=== PATIENT | female | born 1985 | race Caucasian/White ===

== ENCOUNTER → 2016-06-24 | Outpatient (CLI) | payer OTHER ==
--- NOTE | 2016-06-25 05:20 | REP ---
Clinical: Anatomical evaluation. Comparison: 05/27/2016 . Findings: Examination demonstrates a single live intrauterine in breech presentation. motion is identified by technologist. Placenta is noted anteriorly and grade zero without evidence for placenta previa or abruption. Amniotic fluid volume is normal. Cervix measures 5.4 cm in length and appears closed. No evidence for nuchal cord. Gestational age by LMP 24 weeks 4 days with HIPOLITO 10/10/2016 . Gestational age by current measurements 24 weeks 2 days with HIPOLITO 10/12/2016 . FHR equals 133 beats per minute. Estimated weight 718 grams ( 46th percentile). Anatomical assessment demonstrates normal structures including cranium, choroid plexus, cavum, cerebellum/posterior fossa, facial features, lungs, four-chamber heart/ventricular outflow tracts, diaphragm, stomach, cord insertion, bladder, spine, and extremities. Impression: Single live intrauterine in breech presentation demonstrating appropriate interval growth. In conjunction with prior examination anatomical assessment is complete and normal. Signed by Alvin Calderón MD 06/25/2016 05:11 A
== END ==
LOC: M SMT 13:44
PROVIDERS: ATTEND Advanced Practice Midwife
DX: Z36 Encounter for antenatal screening of mother (principal); Z3A.24 24 weeks gestation of pregnancy

== ENCOUNTER → 2016-07-17 | Outpatient (CLI) | payer OTHER ==
[2016-07-17 17:58] LABS: MEAN CORPUSCULAR HGB CONC 32.7 g/dl (32.0-36.5); MEAN CORPUSCULAR VOLUME 94.8 fl (80.0-96.0); WHITE BLOOD COUNT 7.4 K/mm3 (4.0-10.0)
== END ==
LOC: M SMT 13:56
PROVIDERS: ATTEND Specialist
DX: Z34.82 Encounter for supervision of other normal pregnancy, second trimester (principal)

== ENCOUNTER → 2016-07-22 | Outpatient (CLI) | payer OTHER | LOC: M LAB 06:48 | PROVIDERS: ATTEND Specialist | DX: Z36 Encounter for antenatal screening of mother (principal); Z3A.00 Weeks of gestation of pregnancy not specified ==

== ENCOUNTER → 2016-09-15 | Outpatient (REF) | payer OTHER | LOC: M LAB REF 11:31 | PROVIDERS: ATTEND Obstetrics & Gynecology | DX: Z34.83 Encounter for supervision of other normal pregnancy, third trimester (principal) ==

== ENCOUNTER → 2016-09-29 | Outpatient (CLI) | payer OTHER ==
[2016-09-29 11:11] LABS: MEAN CORPUSCULAR HEMOGLOBIN 31.6 pg (27.0-33.0); MEAN CORPUSCULAR HGB CONC 33.4 g/dl (32.0-36.5); MEAN CORPUSCULAR VOLUME 94.5 fl (80.0-96.0); RED CELL DISTRIBUTION WIDTH 12.9 % (11.5-14.5); WHITE BLOOD COUNT 8.7 K/mm3 (4.0-10.0)
[2016-09-29 11:46] LABS: INR 0.93
== END ==
LOC: M LAB 10:36
PROVIDERS: ATTEND Advanced Practice Midwife
DX: Z36 Encounter for antenatal screening of mother (principal)

== ENCOUNTER 2016-10-18 08:55 | Inpatient (IN) | payer OTHER ==
[~2016-10-18] VITALS: Ht 165.1 cm; Wt 80.0 kg
[2016-10-18] VITALS (7 sets, daily range): BP systolic 107–127; BP diastolic 65–75
[2016-10-18] MEDS ORDERED: PRENTAB9 PO (09:02)
[2016-10-18 09:51] LABS: MEAN CORPUSCULAR HEMOGLOBIN 32.5 pg (27.0-33.0); MEAN CORPUSCULAR HGB CONC 33.6 g/dl (32.0-36.5); MEAN CORPUSCULAR VOLUME 96.6 fl (80.0-96.0); RED CELL DISTRIBUTION WIDTH 12.8 % (11.5-14.5); WHITE BLOOD COUNT 7.3 K/mm3 (4.0-10.0)
[2016-10-18] MEDS: miSOPROStol 50 MCG 1/2 TAB (S0191) PO SCH ×2 (11:20→15:35)
[2016-10-18] MEDS ORDERED: CALCIUM CARBONATE 500 MG CHEW U/D PO PRN (11:45)
[2016-10-18] MEDS ORDERED: LACTATED RINGER'S 1000 ML IV ONE (11:54)
--- NOTE | 2016-10-18 21:21 | HPE ---
DATE OF ADMISSION: 10/18/2016 REASON FOR ADMISSION: Induction of labor. HISTORY OF PRESENT ILLNESS: Ms. Paz is a 31-year-old, 2, para 0, who presents at 40 weeks 6 days estimated gestational age by a 9 week ultrasound for induction of labor. Her course has been unremarkable. She initiated care in her first trimester, it has been appropriate throughout. PAST MEDICAL HISTORY: None. PAST SURGICAL HISTORY: She has had a dilatation and curettage for a miscarriage. PAST OBSTETRICAL HISTORY: She is a 2, para 0, had one miscarriage. MEDICATIONS: Includes: - vitamins ALLERGIES: She has no known drug allergies. SOCIAL HISTORY: Denied any alcohol, tobacco, or drug use during her . PHYSICAL EXAMINATION: Her vital signs are stable, she is afebrile. She has a category 1 heart rate tracing and no contractions on tocometer. GENERAL APPEARANCE: She is well-appearing, in no acute distress. LUNGS: Clear to auscultation bilaterally. CARDIOVASCULAR: Heart regular rate and rhythm. ABDOMEN: Gravid, nontender, estimated weight (EFW) 3400 grams. CERVIX: She is 1 cm dilated, 50% effaced, -3 station. LABORATORY DATA: Her blood type is A positive, antibody screen is negative, Rubella is immune, RPR is nonreactive, hepatitis surface antigen was negative, HIV was negative, hepatitis C was nonreactive, chlamydia/gonorrhea screen is negative. She had an elevated 1-hour Glucola with a negative 3-hour glucose tolerance test. She is group B Streptococcus (GBS) negative. ASSESSMENT: 1. Ms. Paz is a 31-year-old, 2, para 0, at 40 weeks 6 days estimated gestational age by her last menstrual period and confirmed by mid-trimester ultrasound here for induction of labor. 2. Reassuring status. PLAN: 1. Admit to labor and delivery. 2. Complete blood count (CBC), rapid plasma reagin (RPR), type and screen. 3. Patient has been thoroughly counseled in regards to her induction of labor. Discussed medication as well as procedures performed during labor and delivery. I have also verbally consented her for emergency surgery, blood products, and anesthesia if she desires to proceed with admission. Will initiate her induction of labor with 50 mcg of misoprostol.
[2016-10-18] MEDS ORDERED: miSOPROStol 50 MCG 1/2 TAB (S0191) PO SCH (22:00)
[2016-10-19] VITALS (42 sets, daily range): BP systolic 98–139; BP diastolic 53–81
[2016-10-19] MEDS: miSOPROStol 100 MCG TAB (S0191) PO SCH ×3 (01:09→09:24)
[2016-10-19] MEDS ORDERED: BUTORPHANOL 2 MG/ML INJ (J0595) IV ONE ×2 (02:30→10:15)
[2016-10-19] MEDS ORDERED: PROMETHAZINE INJ 25 MG/ML VIAL (J2550) IM PRN (02:30)
[2016-10-19] MEDS ORDERED: PROMETHAZINE INJ 25 MG/ML VIAL (J2550) IV PRN (02:45)
[2016-10-19] MEDS ORDERED: PROMETHAZINE INJ 25 MG/ML VIAL (J2550) IV ONE (10:15)
[2016-10-19] MEDS ORDERED: MOM 30ML SUSPENSION UDC PO ONE (10:15)
[2016-10-19] MEDS ORDERED: LR 1,000 ML IV SCH ×2 (14:35→22:15)
[2016-10-19] MEDS ORDERED: OXYTOCIN DRIP 30 UNITS in APPROPRIATE DILUENT 1 EA IV SCH (14:45)
[2016-10-19] MEDS ORDERED: FENTANYL 2MCG/ML ROPIVACAINE 0.2% IN 0.9% NACL 200ML IVBAG As Ordered ONE (19:33)
[2016-10-19] MEDS ORDERED: ceFAZolin 2 GM/D5W 50 ML IV BAG (J0690) As Ordered ONE (22:13)
[2016-10-19] MEDS ORDERED: BICITRA 30ML SOLN UDC As Ordered ONE (22:13)
[2016-10-19] MEDS ORDERED: LACTATED RINGER'S 1000 ML IV STA (22:15)
[2016-10-19] MEDS ORDERED: BICITRA 30ML SOLN UDC PO ONE (22:15)
[2016-10-19] MEDS ORDERED: OXYTOCIN INJ 10 UNITS/ML VIAL (J2590) As Ordered ONE (22:24)
[2016-10-19] MEDS ORDERED: LIDOCAINE 2% W/EPIN INJ 20ML **PRES FREE As Ordered ONE (22:28)
[2016-10-19] MEDS ORDERED: METOCLOPRAMIDE INJ 10MG/2ML VIAL (J2765) IV PRN (23:00)
[2016-10-19] MEDS ORDERED: NALOXONE INJ 0.4 MG/1 ML VIAL (J2310) IV PRN ×2 (23:00)
[2016-10-19] MEDS ORDERED: NALBUPHINE HCL 10 MG/ML AMP (J2300) IV PRN (23:00)
[2016-10-19] MEDS ORDERED: ONDANSETRON 4MG/2ML VIAL (J2405) IV PRN ×2 (23:00→23:30)
[2016-10-19] MEDS ORDERED: MORPHINE PRES-FREE INJ 10 MG/10 ML VIAL (J2274) As Ordered ONE (23:04)
[2016-10-19] MEDS: LR 1,000 ML IV SCH (23:28)
[2016-10-19] MEDS ORDERED: PERCOCET 5MG/325MG TAB PO PRN ×2 (23:30)
[2016-10-19] MEDS ORDERED: OXYTOCIN DRIP 30 UNITS in APPROPRIATE DILUENT 1 EA IV ONE (23:30)
[2016-10-19] MEDS ORDERED: RHOGAM 300 MCG (1500 IU) INJ (J2790) IM SCH (23:30)
[2016-10-19] MEDS ORDERED: DOCUSATE SODIUM 100 MG CAP PO PRN (23:30)
[2016-10-19] MEDS ORDERED: MEASLES,MUMPS,RUBELLA VACCINE INJ (MMR-II) (90707) SC SCH (23:30)
[2016-10-20] VITALS (9 sets, daily range): BP systolic 102–117; BP diastolic 52–67
[2016-10-20] MEDS: KETOROLAC 30 MG/ML VIAL (J1885) IV SCH ×4 (02:00→14:37)
--- NOTE | 2016-10-20 05:33 | RO ---
DATE OF PROCEDURE: 10/19/2016 PREOPERATIVE DIAGNOSES: 1. A 41-plus weeks. 2. Arrest of dilation. 3. intolerance of labor. POSTOPERATIVE DIAGNOSES: 1. A 41-plus weeks. 2. Arrest of dilation. 3. intolerance of labor. OPERATION: Primary low transverse section. SURGEON: Dr. Reymundo Prado [employer] PROGRAM COORDINATOR: Yancy Restrepo ANESTHESIA: Epidural. ESTIMATED BLOOD LOSS: 500 mL. FINDINGS: 7-pound 6-ounce, or 3346 gram female . scores 9 and 10. Left occiput posterior position. Arcuate uterus with normal fallopian tubes and ovaries. OPERATIVE SUMMARY: The patient was taken to the operating room where epidural anesthesia was found to be adequate. She was prepped and draped in sterile fashion in the supine position. A Mckeon catheter was already in place. A Pfannenstiel skin incision was made with a scalpel and carried through to the fascia. The fascia was then extended bilaterally. Rectus muscles were divided. The peritoneal cavity was entered. A bladder flap was created. A curvilinear incision was made in the lower uterine segment until clear fluid was noted. This was extended manually. The was delivered in the vertex position without difficulty. Shoulders delivered with ease. cried spontaneously. The cord was doubly clamped and cut. The infant was handed off to the awaiting nurses. The placenta was expressed. The uterus was exteriorized and cleared of clots and debris. The uterine incision was closed with #0 Vicryl in a running- locked fashion. A second imbricating layer of #0 Vicryl was placed. The uterus was placed back in the abdominal cavity. The peritoneum was closed with #2-0 Vicryl in a running fashion. The fascia was closed with #0 Vicryl in a running fashion. The deep layer was irrigated and closed with #3-0 chromic. Skin was closed with #4-0 Monocryl. Sponge, instrument, and needle counts were correct. The patient went to the recovery room in stable condition. [facility]
[2016-10-20 06:53] LABS: MEAN CORPUSCULAR HEMOGLOBIN 32.2 pg (27.0-33.0); MEAN CORPUSCULAR HGB CONC 34.1 g/dl (32.0-36.5); MEAN CORPUSCULAR VOLUME 94.5 fl (80.0-96.0); WHITE BLOOD COUNT 12.2 K/mm3 (4.0-10.0)
[2016-10-20] MEDS: LR 1,000 ML IV SCH ×3 (07:28→22:15)
[2016-10-20] MEDS: PRENATAL VITAMIN TAB PO SCH (10:02)
[2016-10-20] MEDS ORDERED: KETOROLAC 30 MG/ML VIAL (J1885) IV SCH (21:00)
[2016-10-21] MEDS ORDERED: IBUPROFEN 800 MG TAB PO SCH (05:00)
[2016-10-21 06:06] VITALS: BP 98/63
[2016-10-21] MEDS: LR 1,000 ML IV SCH (06:37)
[2016-10-21] MEDS ORDERED: PERC5TAB6 PO (07:31)
[2016-10-21] MEDS: PRENATAL VITAMIN TAB PO SCH (07:56)
[2016-10-21] MEDS ORDERED: IBUP600T26 PO (07:59)
[2016-10-21] MEDS ORDERED: COLA100C3 PO (07:59)
== END 2016-10-21 12:54 | disposition home or self-care (01) | DRG 540 ==
LOC: M LDI 08:55 → M OBS 10-19 23:36
PROVIDERS: ADMIT Obstetrics & Gynecology; ATTEND Obstetrics & Gynecology
PROC: 3E0DXGC Introduction of Other Therapeutic Substance into Mouth and Pharynx, External Approach (ICD-10-PCS; 2016-10-18)
PROC: 10D00Z1 Extraction of Products of Conception, Low, Open Approach (ICD-10-PCS; principal; 2016-10-19 08:27)
DX: O48.0 Post-term pregnancy (principal); O76 Abnormality in fetal heart rate and rhythm complicating labor and delivery; Z37.0 Single live birth; Z3A.40 40 weeks gestation of pregnancy; Z79.899 Other long term (current) drug therapy; O62.0 Primary inadequate contractions; Q51.810 Arcuate uterus

== ENCOUNTER 2016-12-09 10:55 | Emergency (ER) | payer OTHER ==
[~2016-12-09] VITALS: Ht 165.1 cm; Wt 155.6 kg
[~2016-12-09 10:55] MED LIST: COLA100C5 PO; IBUP-1022 PO; PERC5TAB12 PO; PRENTAB9 PO
[2016-12-09 10:57] VITALS: BP 92/57
[2016-12-09 13:38] LABS: BASO % 0.7 % (0.0-1.0); EOS # 0.2 K/mm3 (0.0-0.50); EOS % 3.8 % (0.0-3.0); LARGE UNSTAINED CELL # 0.2 K/mm3 (0.0-0.4); LARGE UNSTAINED CELL % 2.9 % (0.0-4.0); LYMPH # 1.4 K/mm3 (1.5-4.5); LYMPH % 27.6 % (24.0-44.0); MEAN CORPUSCULAR HEMOGLOBIN 31.3 pg (27.0-33.0); MEAN CORPUSCULAR HGB CONC 32.8 g/dl (32.0-36.5); MEAN CORPUSCULAR VOLUME 95.5 fl (80.0-96.0); MONO # 0.3 K/mm3 (0.0-0.8); PLATELET COUNT, AUTOMATED 317 k/mm3 (150-450); RED CELL DISTRIBUTION WIDTH 12.1 % (11.5-14.5)
[2016-12-09 14:06] LABS: ALBUMIN 3.7 GM/DL (3.2-5.2); ALBUMIN/GLOBULIN RATIO 0.93 (1.00-1.93); ALKALINE PHOSPHATASE 93 U/L (45-117); ALT/SGPT 71 U/L (12-78); AMYLASE 53 U/L (25-115); ANION GAP 4 MEQ/L (8-16); AST/SGOT 30 U/L (15-37); BILIRUBIN,DIRECT 0.1 MG/DL (0.0-0.2); BILIRUBIN,TOTAL 0.4 MG/DL (0.2-1.0); BLOOD UREA NITROGEN 12 MG/DL (7-18); CALCIUM LEVEL 9.5 MG/DL (8.5-10.1); CARBON DIOXIDE LEVEL 31 MEQ/L (21-32); CHLORIDE LEVEL 106 MEQ/L (98-107); CREATININE FOR GFR 0.65 MG/DL (0.55-1.02); GLOMERULAR FILTRATION RATE > 60.0 (>60); GLUCOSE, FASTING 83 MG/DL (70-105); SODIUM LEVEL 141 MEQ/L (136-145); TOTAL PROTEIN 7.7 GM/DL (6.4-8.2)
--- NOTE | 2016-12-11 09:13 | REP ---
Clinical: Acute right upper quadrant abdominal pain. Technique: Cohen scale ultrasound using curved array transducer. Findings: The liver and pancreas are normal in contour, size, and echogenicity without focal hepatic or pancreatic lesions identified. The gallbladder is normal without gallstones, wall thickening or pericholecystic fluid. No biliary ductal dilatation is appreciated, and the common bile duct measures 1.1 mm diameter. The right kidney is normal in reniform shape without hydronephrosis and measures 11.0 x 5.2 x 4.1 cm. A right extra renal pelvis versus subtle pelviectasis cannot be excluded or distinguished. No ascites. Visualized portions of the abdominal aorta normal. Impression: Normal right upper quadrant and gallbladder abdominal ultrasound. A right extra renal pelvis versus subtle pelviectasis cannot be excluded or distinguished. Signed by Alvin Calderón MD 12/11/2016 09:05 A
== END 2016-12-09 15:11 | disposition left against medical advice (07) ==
LOC: M ED 10:55
DX: O90.89 Other complications of the puerperium, not elsewhere classified (principal); R10.11 Right upper quadrant pain; R10.31 Right lower quadrant pain; Z87.891 Personal history of nicotine dependence

== ENCOUNTER → 2017-07-27 | Outpatient (REF) | payer MEDICAID, SELFPAY ==
[2017-07-29 14:12] LABS: HPV HYBRID CAPTURE II Negative (Negative)
== END ==
LOC: M LAB REF 14:44
DX: Z12.4 Encounter for screening for malignant neoplasm of cervix (principal)

== ENCOUNTER → 2017-12-21 | Outpatient (CLI) | payer OTHER ==
[2017-12-21 17:57] LABS: BASO % 0.7 % (0.0-1.0); EOS # 0.1 10^3/uL (0.0-0.50); HEMATOCRIT 36.9 % (36.0-47.0); HEMOGLOBIN 12.3 g/dl (12.0-15.5); LYMPH # 1.3 10^3/uL (1.5-4.5); LYMPH % 27.9 % (24.0-44.0); MEAN CORPUSCULAR HEMOGLOBIN 30.6 pg (27.0-33.0); MEAN CORPUSCULAR HGB CONC 33.3 g/dl (32.0-36.5); MEAN CORPUSCULAR VOLUME 91.8 fl (80.0-96.0); MONO # 0.3 10^3/uL (0.0-0.8); MONO % 7.5 % (0.0-5.0); NEUTROPHILS # 2.8 10^3/uL (1.8-7.7); NEUTROPHILS % 61.9 % (36.0-66.0); PLATELET COUNT, AUTOMATED 136 10^3/uL (150-450); RED BLOOD COUNT 4.02 10^6/uL (4.00-5.40); RED CELL DISTRIBUTION WIDTH 12.5 % (11.5-14.5); WHITE BLOOD COUNT 4.6 10^3/uL (4.0-10.0)
[2017-12-21 22:42] LABS: CHLAMYDIA DNA AMPLIFICATION NEGATIVE (NEGATIVE); GC DNA AMPLIFICATION NEGATIVE (NEGATIVE)
[2017-12-22 09:27] LABS: RUBELLA IgG QUALITATIVE IMMUNE (IMMUNE)
[2017-12-22 09:36] LABS: HBsAg Prenatal NEGATIVE (NEGATIVE)
[2017-12-22 09:57] LABS: HEPATITIS C VIRUS ABY INDEX < 0.0 INDEX (<0.8)
[2017-12-22 09:57] LABS: HIV 1&2 SCREEN CENTAUR NEGATIVE (NEGATIVE)
== END ==
LOC: M SMT 10:52
DX: Z34.81 Encounter for supervision of other normal pregnancy, first trimester (principal); Z3A.09 9 weeks gestation of pregnancy
CPT/HCPCS: 86762

== ENCOUNTER → 2018-01-25 | Outpatient (CLI) | payer MEDICAID | LOC: M SMT 09:30 | DX: Z13.79 Encounter for other screening for genetic and chromosomal anomalies (principal) | CPT/HCPCS: 36415 ==

== ENCOUNTER → 2018-02-15 | Outpatient (CLI) | payer OTHER, MEDICAID | LOC: M RAD 07:26 | DX: Z34.82 Encounter for supervision of other normal pregnancy, second trimester (principal); Z36.89 Encounter for other specified antenatal screening; Z3A.19 19 weeks gestation of pregnancy | CPT/HCPCS: 76817 ==

== ENCOUNTER → 2018-04-13 | Outpatient (CLI) | payer OTHER | LOC: M RAD 12:30 | DX: O32.2XX0 Maternal care for transverse and oblique lie, not applicable or unspecified (principal); Z36.89 Encounter for other specified antenatal screening; Z3A.27 27 weeks gestation of pregnancy | CPT/HCPCS: 76817 ==

== ENCOUNTER → 2018-04-19 | Outpatient (CLI) | payer OTHER ==
[2018-04-19 14:21] LABS: HEMATOCRIT 37.1 % (36.0-47.0); HEMOGLOBIN 12.3 g/dl (12.0-15.5); MEAN CORPUSCULAR HEMOGLOBIN 31.9 pg (27.0-33.0); MEAN CORPUSCULAR HGB CONC 33.2 g/dl (32.0-36.5); MEAN CORPUSCULAR VOLUME 96.1 fl (80.0-96.0); PLATELET COUNT, AUTOMATED 173 10^3/uL (150-450); RED BLOOD COUNT 3.86 10^6/uL (4.00-5.40); WHITE BLOOD COUNT 8.1 10^3/uL (4.0-10.0)
[2018-04-19 14:46] LABS: GLUCOSE CHALLENGE TEST 1 HOUR 116 MG/DL (LESS THAN 140)
== END ==
LOC: M SMT 09:51
DX: Z36.89 Encounter for other specified antenatal screening (principal)
CPT/HCPCS: 82950

== ENCOUNTER → 2018-06-21 | Outpatient (REF) | payer OTHER | LOC: M LAB REF 17:04 | PROVIDERS: ATTEND Specialist | DX: O44.43 Low lying placenta NOS or without hemorrhage, third trimester (principal) ==

== ENCOUNTER 2018-07-05 05:50 | Inpatient (IN) | payer OTHER ==
[~2018-07-05] VITALS: Ht 165.1 cm; Wt 67.0 kg
[2018-07-05] VITALS (9 sets, daily range): BP systolic 99–113; BP diastolic 53–71
[2018-07-05 06:35] LABS: HEMATOCRIT 37.7 % (36.0-47.0); HEMOGLOBIN 12.5 g/dl (12.0-15.5); MEAN CORPUSCULAR HEMOGLOBIN 31.6 pg (27.0-33.0); MEAN CORPUSCULAR HGB CONC 33.2 g/dl (32.0-36.5); MEAN CORPUSCULAR VOLUME 95.2 fl (80.0-96.0); PLATELET COUNT, AUTOMATED 166 10^3/uL (150-450); RED BLOOD COUNT 3.96 10^6/uL (4.00-5.40); WHITE BLOOD COUNT 9.8 10^3/uL (4.0-10.0)
[2018-07-05] MEDS ORDERED: LR 1,000 ML IV SCH (06:45)
[2018-07-05] MEDS ORDERED: BICITRA 30ML SOLN UDC PO ONE (06:45)
[2018-07-05] MEDS ORDERED: LR 1,000 ML IV ONE (06:45)
[2018-07-05] MEDS ORDERED: ONDANSETRON 4MG/2ML VIAL (J2405) IV PRN ×2 (08:22→09:15)
[2018-07-05] MEDS ORDERED: NALOXONE INJ 0.4 MG/1 ML VIAL (J2310) IV PRN ×2 (08:22)
[2018-07-05] MEDS ORDERED: NALBUPHINE HCL 10 MG/ML AMP (J2300) IV PRN (08:22)
[2018-07-05] MEDS ORDERED: METOCLOPRAMIDE INJ 10MG/2ML VIAL (J2765) IV PRN (08:22)
[2018-07-05] MEDS ORDERED: diphenhydrAMINE INJ 50MG/ML VIAL (J1200) IV PRN (08:22)
[2018-07-05] MEDS ORDERED: MORPHINE PRES-FREE INJ 10 MG/10 ML VIAL (J2274) As Ordered ONE (08:30)
[2018-07-05] MEDS ORDERED: OXYTOCIN INJ 10 UNITS/ML VIAL (J2590) As Ordered ONE (08:30)
[2018-07-05] MEDS ORDERED: BUPIVACAINE/DEXTROSE 0.75% 2 ML AMP As Ordered ONE (08:33)
[2018-07-05] MEDS ORDERED: ePHEDrine SULFATE 25 MG/5 ML(5MG/ML) SYRINGE As Ordered ONE (08:33)
[2018-07-05] MEDS: PRENATAL VITAMINS CHEWABLE TABLET PO SCH (09:00)
[2018-07-05] MEDS: DOCUSATE SODIUM 100 MG CAP PO SCH ×2 (09:00→20:50)
[2018-07-05] MEDS ORDERED: OXYTOCIN DRIP 30 UNITS in APPROPRIATE DILUENT 1 EA IV SCH (09:08)
[2018-07-05] MEDS ORDERED: PERCOCET PO (09:12)
[2018-07-05] MEDS ORDERED: IBUP1TAB7 PO (09:13)
[2018-07-05] MEDS ORDERED: PERCOCET 5MG/325MG TAB PO PRN (09:15)
[2018-07-05] MEDS ORDERED: MEASLES,MUMPS,RUBELLA VACCINE INJ (MMR-II) (90707) SC SCH (09:15)
[2018-07-05] MEDS ORDERED: MOM 30ML SUSPENSION UDC PO PRN (09:15)
[2018-07-05] MEDS ORDERED: RHOGAM 300 MCG (1500 IU) INJ (J2790) IM SCH (09:15)
[2018-07-05] MEDS ORDERED: IBUPROFEN 800 MG TAB PO SCH ×2 (09:30→17:00)
--- NOTE | 2018-07-05 09:37 | RO ---
DATE OF PROCEDURE: 07/05/2018 PREPROCEDURE DIAGNOSIS: 39 weeks, prior section times one. POSTPROCEDURE DIAGNOSIS: 39 weeks, prior section times one PROCEDURE: Repeat low transverse section. SURGEON: Dr. Reymundo Prado. KILN CLEANER: Dr. Mandy Tolbert. ANESTHESIA: Spinal. ESTIMATED BLOOD LOSS: 700 mL. URINE OUTPUT: 50 mL. FINDINGS: 4560 gram, 10 pound, 1 ounce male , Apgars 8 and 9. Uterus with filmy adhesions in the posterior cul-de-sac, the lower uterine segment and to the right ovary and fallopian tube. Otherwise, normal. DESCRIPTION OF PROCEDURE: Patient taken to the operating room where spinal anesthesia was induced. She was prepped and draped in a sterile fashion in the supine position. A Mckeon catheter was placed. Pfannenstiel skin incision was made with a scalpel and cut through the fascia. The fascia was nicked and extended, the peritoneal cavity was entered. The bladder flap was created. A curvilinear incision made in the lower uterine segment and clear fluid was noted. This was extended manually. The was delivered from the vertex position with the use of a vacuum extractor. The shoulders delivered with ease. The cord was doubly clamped and cut. The was handed off to the awaiting nurses. The placenta was expressed. The uterus was exteriorized and cleared of all clots and debris. The uterine incision was closed with 0 Vicryl in a running locked fashion. A second imbricating layer of 0 Vicryl was placed. The uterus was placed back in the abdominal cavity. The peritoneum was closed with #2-0 Vicryl in a running fashion. The fascia was closed with 0 Vicryl in a running fashion. The deep layer was irrigated and closed with #2-0 chromic. The skin was closed with #4-0 Monocryl subcuticular sutures. Sponge, instrument and needle counts were correct. Dr. Mandy Tolbert MD assisted in all aspects of the procedure from beginning to end. He assisted with creating all layers of the abdomen and the hysterotomy. He assisted with expulsion of the fetus and subsequent closure of all layers. [facility]
[2018-07-05] MEDS ORDERED: fentaNYL 100 MCG/2 ML INJECTION (J3010) IV PRN (10:00)
[2018-07-05] MEDS ORDERED: OXYTOCIN 30 UNITS IN 0.9% NaCl 500ML IV BAG (J2590) As Ordered ONE (10:13)
[2018-07-05] MEDS: LR 1,000 ML IV SCH ×2 (15:00→17:08)
[2018-07-05] MEDS ORDERED: KETOROLAC 30 MG/ML VIAL (J1885) IV SCH (16:00)
[2018-07-05] MEDS: PERCOCET 5MG/325MG TAB PO PRN ×2 (16:42→20:51)
[2018-07-05] MEDS: KETOROLAC 30 MG/ML VIAL (J1885) IV SCH (22:01)
[2018-07-06] MEDS: PERCOCET 5MG/325MG TAB PO PRN ×4 (02:15→18:07)
[2018-07-06 02:19] VITALS: BP 98/55
[2018-07-06] MEDS: KETOROLAC 30 MG/ML VIAL (J1885) IV SCH (04:34)
[2018-07-06] MEDS: IBUPROFEN 800 MG TAB PO SCH ×3 (05:02→20:43)
[2018-07-06 06:08] VITALS: BP 97/54
[2018-07-06 06:55] LABS: HEMATOCRIT 27.8 % (36.0-47.0); MEAN CORPUSCULAR HEMOGLOBIN 31.5 pg (27.0-33.0); MEAN CORPUSCULAR HGB CONC 33.1 g/dl (32.0-36.5); MEAN CORPUSCULAR VOLUME 95.2 fl (80.0-96.0); PLATELET COUNT, AUTOMATED 132 10^3/uL (150-450); RED BLOOD COUNT 2.92 10^6/uL (4.00-5.40); WHITE BLOOD COUNT 7.5 10^3/uL (4.0-10.0)
[2018-07-06 07:07] LABS: HEMOGLOBIN 9.2 g/dl (12.0-15.5)
--- NOTE | 2018-07-06 07:19 | NUR ---
POD#1 S: Doing well w/o complaints. Tolerating diet, voiding, ambulating and pain well controlled. O: vss, AF gen: well appearing abd: soft, appropriately tender incision: dress ext: neg calf tenderness A/P: POD #1 s/p ERLTCS - recovering in stable -cont routine care Mandy Tolbert MD
[2018-07-06] MEDS: DOCUSATE SODIUM 100 MG CAP PO SCH ×2 (08:05→20:44)
[2018-07-06] MEDS: PRENATAL VITAMINS CHEWABLE TABLET PO SCH (09:00)
[2018-07-06 10:00] VITALS: BP 108/59
[2018-07-06] MEDS ORDERED: IBUPROFEN 800 MG TAB PO SCH (12:00)
[2018-07-06 14:00] VITALS: BP 105/59
[2018-07-06 18:00] VITALS: BP 93/55
[2018-07-06 22:30] VITALS: BP 100/53
[2018-07-07] MEDS: PERCOCET 5MG/325MG TAB PO PRN ×3 (01:46→17:29)
[2018-07-07 02:45] VITALS: BP 87/51
[2018-07-07] MEDS: IBUPROFEN 800 MG TAB PO SCH ×2 (05:43→14:21)
[2018-07-07 06:29] VITALS: BP 114/58
--- NOTE | 2018-07-07 06:55 | DS.PDOC ---
Discharge Summary General Date of Admission Jul 05, 2018 at 05:50 Date of Discharge 07/07/2018 Attending Physician: LUANA TREJO MD Discharge Summary PROCEDURES PERFORMED DURING STAY: repeat . ADMITTING DIAGNOSES: 1. IUP at 39 weeks gestation 3. prior section-desires repeat DISCHARGE DIAGNOSES: 1. Day 2 postoperative COMPLICATIONS/CHIEF COMPLAINT: repeat HISTORY OF PRESENT ILLNESS: Patient is a 32-year-old female at 39 weeks gestation who presents to L&D for a scheduled repeat . DISCHARGE MEDICATIONS: Please see below. PHYSICAL EXAMINATION ON DISCHARGE: VITAL SIGNS: Please see below. GENERAL: A+Ox3 RESPIRATORY EXAMINATION: regular rate and rhythm. ABDOMINAL EXAMINATION: Fundus firm at 2 below umbilicus. Dressing still applied to site. EXTREMITIES: generalized edema bilateral feet and legs. SKIN: warm, dry, without any unusual rashes. LABORATORY DATA: Please see below. ACTIVITY: As tolerated. DIET: regular DISCHARGE INSTRUCTIONS: 1. Patient to be discharged home. She is to follow-up in the office in 2 weeks and 6 weeks. 2. Education done on dressing removal-removal on day 5 . 3. Education done on mastitis, fever, DVT, pulmonary edema, hemorrhage, infection at the incision site, and cleaning of incision. DISCHARGE CONDITION: Stable. Vital Signs/I&Os Vital Signs Date Time Temp Pulse Resp B/P (MAP) Pulse Ox O2 Delivery O2 Flow Rate FiO2 07/07/18 06:29 97.4 86 18 114/58 (76) 07/06/18 18:00 100 07/06/18 02:19 Room Air Laboratory Data CBC/BMP Item Value Date Time White Blood Count 7.5 10^3/uL 07/06/18 0631 Red Blood Count 2.92 10^6/uL L 07/06/18 0631 Hemoglobin 9.2 g/dl L # 07/06/18 0631 Hematocrit 27.8 % L 07/06/18 06 Mean Corpuscular Volume 95.2 fl 07/06/18630 Mean Corpuscular Hemoglobin 31.5 pg 07/06/18630 Mean Corpuscular Hemoglobin Concent 33.1 g/dl 07/06/18630 Red Cell Distribution Width 12.8 % 07/06/18630 Platelet Count 132 10^3/uL L 07/06/18 0631 Discharge Medications Scheduled Multivitamins/ ( 27-0.8 mg) 1 Tab Tab, 1 TAB PO DAILY, (Reported) Scheduled PRN Ibuprofen (Ibuprofen) 800 Mg Tab, 800 MG PO Q8HP PRN for PAIN Oxycodone/Acetaminophen (Percocet 5MG/325MG Tablet) 1 Tab Tab, 1-2 TAB PO Q4-6HP PRN for PAIN Allergies Coded Allergies: No Known Drug Allergy (Unverified Allergy, Unknown, 09/12/12) HUYEN BARRIOS CNM Jul 07, 2018 06:55
[2018-07-07] MEDS: PRENATAL VITAMINS CHEWABLE TABLET PO SCH (09:25)
[2018-07-07] MEDS: DOCUSATE SODIUM 100 MG CAP PO SCH (09:25)
[2018-07-07 10:02] VITALS: BP 103/55
[2018-07-07 14:20] VITALS: BP 99/56
== END 2018-07-07 18:10 | disposition home or self-care (01) | DRG 540 ==
LOC: M ED INP 05:50 → M LDI 05:52 → M OBS 11:34
PROVIDERS: ADMIT Specialist; ATTEND Specialist
PROC: 10D00Z1 Extraction of Products of Conception, Low, Open Approach (ICD-10-PCS; principal; 2018-07-05 07:30)
DX: O34.211 Maternal care for low transverse scar from previous cesarean delivery (principal); Z3A.39 39 weeks gestation of pregnancy; Z37.0 Single live birth

== ENCOUNTER → 2018-12-14 | Outpatient (CLI) | payer OTHER ==
[~2018-12-14] MED LIST changes: +IBUP1TAB7 PO; +PERCOCET PO
[2018-12-17 00:06] LABS: HPV HYBRID CAPTURE II Negative (Negative)
== END ==
LOC: M SMT 09:16
PROVIDERS: ATTEND Specialist
DX: Z12.4 Encounter for screening for malignant neoplasm of cervix (principal); Z32.01 Encounter for pregnancy test, result positive

== ENCOUNTER → 2018-12-16 | Outpatient (CLI) | payer OTHER | LOC: M SMT 11:01 | PROVIDERS: ATTEND Specialist | DX: Z32.01 Encounter for pregnancy test, result positive (principal) ==

== ENCOUNTER → 2019-06-08 | Outpatient (CLI) | payer OTHER ==
[2019-06-08 14:14] LABS: HCG, SERUM QUALITATIVE POSITIVE (NEGATIVE)
[2019-06-08 15:18] LABS: HCG, SERUM QUANTITATIVE 42909 MIU/ML
== END ==
LOC: M PLALAB 09:06
PROVIDERS: ATTEND Advanced Practice Midwife
DX: O36.80X0 Pregnancy with inconclusive fetal viability, not applicable or unspecified (principal)

== ENCOUNTER → 2019-06-13 | Outpatient (CLI) | payer OTHER ==
--- NOTE | 2019-06-13 19:37 | REP ---
Obstetric sonography: History: Supervision of . Findings: Scanning through the gravid uterus demonstrates a viable single intrauterine gestation in a breech lie. motion is observed and heart rate is recorded at 150 beats per minute. A anterior grade zero placenta is seen without evidence of previa or abruption. Amniotic fluid is subjectively normal. Closed cervical length is 3.9 cm viewed transabdominally. No extrauterine abnormalities observed. Bilateral choroid plexus cysts are seen on the right 1.8 mm and on the left 2.5 mm. The following additional anatomic structures are identified and felt to be unremarkable: cranium, cavum, cerebellum posterior fossa, lungs, diaphragm, left-sided stomach, abdominal wall cord insertion, three-vessel cord, a urinary bladder, upper and lower extremities. The following additional anatomic structures were less than optimally seen due to position and early gestational age: nose and lips, four-chamber heart with left and right ventricular outflow tract views, kidneys, and spine. Biometry chart: BPD 3.7 cm 17 weeks 2 days Head circumference 13.4 cm 16 weeks 6 days Abdominal circumference 10.8 cm 16 weeks 5 days Femur length 2.1 cm 16 weeks 2 days Humeral length 2.1 cm 16 weeks 2 days HC/AC ratio normal 1.23, cephalic index normal 0.78, estimated weight 161 grams, 0 pounds 5 ounces, 56th percentile for 16 weeks 2 days. Impression: Viable single intrauterine gestation at 16 weeks 5 days by today's composite sonographic criteria. HIPOLITO by today's sonography November 23, 2019. anatomic survey is incomplete as above. There are small bilateral choroid plexus cysts. Electronically Signed by Edmund Estrada MD 06/13/2019 07:51 P
== END ==
LOC: M RAD 08:36
PROVIDERS: ATTEND Advanced Practice Midwife
DX: O36.80X0 Pregnancy with inconclusive fetal viability, not applicable or unspecified (principal)

== ENCOUNTER → 2019-07-14 | Outpatient (CLI) | payer OTHER ==
[2019-07-14 13:49] LABS: BASO % 0.4 % (0.0-1.0); EOS # 0.1 10^3/uL (0.0-0.5); EOS % 1.3 % (0.0-3.0); HEMATOCRIT 39.2 % (36.0-47.0); HEMOGLOBIN 12.3 g/dl (12.0-15.5); LYMPH # 1.5 10^3/uL (1.5-5.0); LYMPH % 21.2 % (24.0-44.0); MEAN CORPUSCULAR HEMOGLOBIN 30.5 pg (27.0-33.0); MEAN CORPUSCULAR HGB CONC 31.4 g/dl (32.0-36.5); MEAN CORPUSCULAR VOLUME 97.3 fl (80.0-96.0); MONO # 0.4 10^3/uL (0.0-0.8); MONO % 5.7 % (0.0-5.0); PLATELET COUNT, AUTOMATED 213 10^3/uL (150-450); RED BLOOD COUNT 4.03 10^6/uL (4.00-5.40)
[2019-07-14 15:05] LABS: HEPATITIS C VIRUS ABY INDEX < 0.0 INDEX (<0.8); HIV 1&2 SCREEN CENTAUR NEGATIVE (NEGATIVE); RUBELLA IgG QUALITATIVE IMMUNE (IMMUNE)
[2019-07-14 19:05] LABS: CHLAMYDIA DNA AMPLIFICATION NEGATIVE (NEGATIVE); GC DNA AMPLIFICATION NEGATIVE (NEGATIVE)
== END ==
LOC: M PLALAB 11:36
PROVIDERS: ATTEND Obstetrics & Gynecology
DX: O34.211 Maternal care for low transverse scar from previous cesarean delivery (principal); Z3A.00 Weeks of gestation of pregnancy not specified

== ENCOUNTER → 2019-09-06 | Outpatient (REF) | payer OTHER ==
[2019-09-06 10:17] LABS: HEMATOCRIT 38.7 % (36.0-47.0); HEMOGLOBIN 12.6 g/dl (12.0-15.5); MEAN CORPUSCULAR HEMOGLOBIN 31.5 pg (27.0-33.0); MEAN CORPUSCULAR HGB CONC 32.6 g/dl (32.0-36.5); MEAN CORPUSCULAR VOLUME 96.8 fl (80.0-96.0); PLATELET COUNT, AUTOMATED 186 10^3/uL (150-450); WHITE BLOOD COUNT 8.2 10^3/uL (4.0-10.0)
== END ==
LOC: M PLALAB 08:06
PROVIDERS: ATTEND Specialist
DX: Z00.00 Encounter for general adult medical examination without abnormal findings (principal)

== ENCOUNTER → 2019-09-14 | Outpatient (CLI) | payer OTHER ==
--- NOTE | 2019-09-14 18:54 | REP ---
Obstetric sonography: History: Supervision of , followup anatomy, facial features four-chamber heart and outflow tract views, kidneys and spine. Comparison study June 13, 2019. Findings: Scanning through the gravid uterus demonstrates a single living intrauterine gestation in a breech lie. motion is observed and heart rate is recorded at 135 beats per minute. An anterior grade 1 placenta is seen without evidence of previa or abruption. Amniotic fluid is subjectively normal. Closed cervical length is measured at 4.7 cm viewed transabdominally. No extrauterine abnormality is observed. There has been appropriate interval growth. Exam quality is inhibited to some degree by position and limited views of the heart were obtained. Four-chamber heart and left ventricular outflow tract view was obtained but right ventricular outflow tract view was less than optimally seen. Face and profile, kidneys, and spine were observed and felt to be unremarkable. Biometry chart: BPD 7.5 cm = 30 weeks 1 day HC 27.6 cm = 30 weeks 1 day AC 28.0 cm = 32 weeks 1 day FL 5.9 cm = 30 weeks 6 days HL 5.5 cm = 31 weeks 5 days HC/AC ratio normal 0.99. Cephalic index normal 0.76. Estimated weight 1754 grams, 3 pounds 13 ounces, 84th percentile for 29 weeks 4 days. SIRIA 15.8 cm. Impression: Viable single intrauterine gestation at 30 weeks 3 days by today's composite criteria. Expected gestational age estimate based on prior sonography is 29 weeks 4 days. HIPOLITO by prior sonography November 26, 2019. anatomic survey is complete with the exception of an adequately visualized right ventricular outflow tract. Breech lie.
== END ==
LOC: M WHC 14:56
PROVIDERS: ATTEND Obstetrics & Gynecology
DX: O34.211 Maternal care for low transverse scar from previous cesarean delivery (principal)

== ENCOUNTER → 2019-10-24 | Outpatient (REF) | payer OTHER | LOC: M SFHCWAGY 14:38 | PROVIDERS: ATTEND Specialist | DX: Z34.83 Encounter for supervision of other normal pregnancy, third trimester (principal) ==

== ENCOUNTER → 2019-11-13 | Outpatient (CLI) | payer OTHER ==
[~2019-11-13] MED LIST changes: +OXYC1TAB23 PO
== END ==
LOC: M LABSMTC 12:37
PROVIDERS: ATTEND Anesthesiology
DX: Z03.818 Encounter for observation for suspected exposure to other biological agents ruled out (principal); Z11.59 Encounter for screening for other viral diseases
CPT/HCPCS: C9803; U0003

== ENCOUNTER 2019-11-16 05:17 | Inpatient (IN) | payer OTHER ==
[~2019-11-16] VITALS: Ht 165.1 cm; Wt 86.4 kg
[2019-11-16] VITALS (7 sets, daily range): BP systolic 99–120; BP diastolic 51–62
[~2019-11-16 05:17] MED LIST changes: -OXYC1TAB23 PO
[2019-11-16 06:11] LABS: HEMATOCRIT 36.6 % (36.0-47.0); HEMOGLOBIN 12.2 g/dl (12.0-15.5); MEAN CORPUSCULAR HEMOGLOBIN 31.2 pg (27.0-33.0); MEAN CORPUSCULAR HGB CONC 33.3 g/dl (32.0-36.5); MEAN CORPUSCULAR VOLUME 93.6 fl (80.0-96.0); PLATELET COUNT, AUTOMATED 213 10^3/uL (150-450); RED BLOOD COUNT 3.91 10^6/uL (4.00-5.40); WHITE BLOOD COUNT 7.9 10^3/uL (4.0-10.0)
[2019-11-16] MEDS ORDERED: ceFAZolin SOD 2 GM in IV 1 EA IV ONE (06:30)
[2019-11-16] MEDS ORDERED: LR 1,000 ML IV ONE (06:30)
[2019-11-16] MEDS ORDERED: BICITRA 30ML SOLN UDC PO ONE (06:30)
[2019-11-16] MEDS ORDERED: LR 1,000 ML IV SCH ×2 (06:45→08:27)
[2019-11-16] MEDS ORDERED: OXYC1TAB23 PO (07:42)
[2019-11-16] MEDS ORDERED: IBUP-1022 PO (07:43)
[2019-11-16] MEDS ORDERED: diphenhydrAMINE 50MG/ML VIAL (J1200) IV PRN (07:44)
[2019-11-16] MEDS ORDERED: ONDANSETRON 4MG/2ML VIAL IV PRN ×3 (07:44→09:00)
[2019-11-16] MEDS ORDERED: METOCLOPRAMIDE INJ 10MG/2ML VIAL (J2765 PER 1) IV PRN (07:44)
[2019-11-16] MEDS ORDERED: NALBUPHINE HCL 10 MG/ML AMP (J2300) IV PRN (07:44)
[2019-11-16] MEDS ORDERED: NALOXONE INJ 0.4MG/1ML VIAL (J2310 PER 1MG) IV PRN ×2 (07:44)
[2019-11-16] MEDS ORDERED: KETOROLAC 60MG 2ML VIAL As Ordered ONE (08:05)
[2019-11-16] MEDS ORDERED: dexameTHASONE 4 MG/ML 1ML VIAL (J1100 PER 1MG) As Ordered ONE (08:05)
[2019-11-16] MEDS ORDERED: OXYTOCIN 30 UNITS IN 0.9% NaCl 500ML IV BAG (J2590) As Ordered ONE ×2 (08:05→09:01)
[2019-11-16] MEDS ORDERED: PHENYLephrine HCL 500 MCG/5 ML (100MCG/ML) SYRINGE (J2370) As Ordered ONE (08:05)
[2019-11-16] MEDS ORDERED: MORPHINE PRES-FREE INJ 10 MG/10 ML VIAL (J2274) As Ordered ONE (08:05)
[2019-11-16] MEDS ORDERED: ONDANSETRON 4MG/2ML VIAL As Ordered ONE (08:05)
[2019-11-16] MEDS ORDERED: ePHEDrine SULFATE 25 MG/5 ML(5MG/ML) SYRINGE As Ordered ONE (08:05)
[2019-11-16] MEDS ORDERED: OXYTOCIN DRIP 30 UNITS in IV 1 EA IV SCH (08:27)
[2019-11-16] MEDS ORDERED: PERCOCET 5MG/325MG TAB PO PRN (08:30)
[2019-11-16] MEDS ORDERED: MOM 30ML SUSPENSION UDC PO PRN (08:30)
[2019-11-16] MEDS ORDERED: RHOGAM 300 MCG (1500 IU) INJ (J2790) IM SCH (08:30)
[2019-11-16] MEDS ORDERED: MEASLES,MUMPS,RUBELLA VACCINE INJ (MMR-II) (90707) SC SCH (08:30)
[2019-11-16] MEDS ORDERED: fentaNYL 100 MCG/2 ML INJECTION (J3010) IV PRN (09:00)
[2019-11-16] MEDS ORDERED: oxyCODONE 5MG TAB PO PRN (09:00)
[2019-11-16] MEDS: PRENATAL VITAMINS CHEWABLE TABLET PO SCH (09:00)
[2019-11-16] MEDS: DOCUSATE SODIUM 100 MG CAP PO SCH ×2 (09:00→20:28)
[2019-11-16] MEDS: KETOROLAC 30 MG/ML 1ML VIAL IV SCH ×2 (14:58→20:28)
[2019-11-16] MEDS: PERCOCET 5MG/325MG TAB PO PRN (23:10)
[2019-11-17] MEDS: KETOROLAC 30 MG/ML 1ML VIAL IV SCH (02:14)
[2019-11-17 02:23] VITALS: BP 93/53
[2019-11-17 06:35] VITALS: BP 93/54
[2019-11-17 06:50] LABS: HEMATOCRIT 29.7 % (36.0-47.0); MEAN CORPUSCULAR HEMOGLOBIN 31.6 pg (27.0-33.0); MEAN CORPUSCULAR VOLUME 95.8 fl (80.0-96.0); PLATELET COUNT, AUTOMATED 189 10^3/uL (150-450); WHITE BLOOD COUNT 7.7 10^3/uL (4.0-10.0)
[2019-11-17 06:57] LABS: HEMOGLOBIN 9.8 g/dl (12.0-15.5)
--- NOTE | 2019-11-17 07:34 | IPNPDOC ---
Progress Note Date of Service: Nov 17, 2019 Day#: 1 Progress Note SUBJECT: Doing well without complaints. Ambulating, voiding and pain is well- controlled. Reports minimal lochia. +breast feeding OBJECTIVE: VITAL SIGNS: Within normal limits, afebrile. Alert and oriented times three. Abdomen: Fundus firm at U-2. Soft, NTTP. Incision: Dressed Ext: neg calf tenderness. ASSESSMENT: day/postoperative day #1 status post repeat section. Recovering in stable condition. PLAN: 1. Continue routine /postoperative care 2. Discharge plans for tomorrow VS, I&O, 24H, Fishbone Vital Signs/I&O Vital Signs Date Time Temp Pulse Resp B/P (MAP) Pulse Ox O2 Delivery O2 Flow Rate FiO2 11/17/19 06:35 96.4 76 18 93/54 (67) 11/17/19 02:23 97 Room Air I&O- Last 24 Hours up to 6 AM 11/17/19 06:00 Intake Total 3875 ml Output Total 2975 ml Balance 900 ml Laboratory Data 24H LABS Laboratory Tests 2 11/17/19 06:30: Nucleated Red Blood Cells % (auto) 0.0 CBC/BMP Laboratory Tests 11/17/19 06:30 OLIVER KENNY MD. Nov 17, 2019 07:34
[2019-11-17] MEDS: DOCUSATE SODIUM 100 MG CAP PO SCH ×2 (07:43→21:46)
[2019-11-17] MEDS: PERCOCET 5MG/325MG TAB PO PRN ×3 (07:48→19:25)
[2019-11-17] MEDS: PRENATAL VITAMINS CHEWABLE TABLET PO SCH (09:00)
[2019-11-17 10:10] VITALS: BP 104/58
[2019-11-17] MEDS: IBUPROFEN 800 MG TAB PO SCH ×2 (11:24→18:35)
[2019-11-17 14:00] VITALS: BP 104/68
[2019-11-17 18:04] VITALS: BP 109/67
[2019-11-17 22:00] VITALS: BP 109/66
[2019-11-18] MEDS: PERCOCET 5MG/325MG TAB PO PRN ×3 (01:09→13:58)
[2019-11-18 02:00] VITALS: BP 96/56
[2019-11-18] MEDS: IBUPROFEN 800 MG TAB PO SCH ×2 (03:35→10:43)
[2019-11-18 06:00] VITALS: BP 108/59
--- NOTE | 2019-11-18 07:27 | DS.PDOC ---
Discharge Summary General Date of Admission Nov 16, 2019 at 05:17 Date of Discharge November 18, 2019 Discharge Summary PROCEDURES PERFORMED DURING STAY: Repeat with bilateral tubal ligation ADMITTING DIAGNOSES: 1. Prior section at term. 2. Satisfied parity DISCHARGE DIAGNOSES: 1. Repeat section. 2. Satisfied parity COMPLICATIONS/CHIEF COMPLAINT: Previous Section. HISTORY OF PRESENT ILLNESS: 34yo G6 now [id number] admitted 11/16/2019 for repeat section and BTL. HOSPITAL COURSE: Feels well, ambulating. on demand. Tolerating diet. Adequate pain management. Voiding and passing flatus. DISCHARGE MEDICATIONS: Please see below. ALLERGIES: Please see below. PHYSICAL EXAMINATION ON DISCHARGE: VITAL SIGNS: Please see below. GENERAL: No distress HEENT: WNL NECK: Supple CARDIOVASCULAR EXAMINATION: HRR, normotensive RESPIRATORY EXAMINATION: Clear and unlabored ABDOMINAL EXAMINATION: Fundus firm, dressing intact EXTREMITIES: Equal strength and motion SKIN: Intact NEUROLOGICAL EXAMINATION: Grossly intact PSYCHIATRIC EXAMINATION: Appropriate LABORATORY DATA: Please see below. PROGNOSIS: Good ACTIVITY: As tolerated. Pelvic rest DIET: As tolerated DISCHARGE PLAN: Home today. RTO 2 wks and 6 wks DISPOSITION: Home. DISCHARGE INSTRUCTIONS: 1. Oral medications as ordered. Pelvic rest. Remove dressing day 5. Call with fever, N/V, evidence infection, foul lochia or wound exudate. DISCHARGE CONDITION: Stable. Vital Signs/I&Os Vital Signs Date Time Temp Pulse Resp B/P (MAP) Pulse Ox O2 Delivery O2 Flow Rate FiO2 11/18/19 06:00 97.1 73 16 108/59 (75) 11/17/19 18:04 96 Room Air Discharge Medications Scheduled Ibuprofen (Ibuprofen) 600 Mg Tablet, 1 TAB PO TID for pain with food No.137/Iron/Folic Acd ( Vitamin Tablet) 1 Tab Tab, 1 TAB PO DAILY, (Reported) Scheduled PRN Oxycodone HCl/Acetaminophen (Oxycodone-Acetaminophen 5-325) 1 Each Tablet, 1 TAB PO TIDP PRN for pain Allergies Coded Allergies: No Known Allergies (Unverified , 11/02/19) Yancy Restrepo CNM Nov 18, 2019 07:27
[2019-11-18] MEDS: DOCUSATE SODIUM 100 MG CAP PO SCH (07:51)
[2019-11-18] MEDS: PRENATAL VITAMINS CHEWABLE TABLET PO SCH (09:00)
--- NOTE | 2019-11-21 12:11 | RO ---
DATE OF PROCEDURE: 11/16/2019 PREOPERATIVE DIAGNOSIS: 39 weeks, prior section times two. POSTOPERATIVE DIAGNOSIS: 39 weeks, prior section times two. PROCEDURE: Repeat low transverse section. SURGEON: Reymundo Prado MD BASE REMOVER: Mandy Tolbert MD ANESTHESIA: Spinal. ESTIMATED BLOOD LOSS: 650 mL. URINE OUTPUT: 25 mL. FINDINGS: 3680 gram (8 pound 2 ounce) female . score 9 and 9. Normal uterus, fallopian tubes, and ovaries. OPERATIVE SUMMARY: The patient was taken to the operating room where spinal anesthesia was induced. She was prepped and draped in sterile fashion in the supine position. A Mckeon catheter was placed. A Pfannenstiel skin incision was made with the scalpel and carried through to the fascia. The fascia was nicked and extended. The fascia was dissected off the rectus muscles. Peritoneal cavity was entered. Bladder flap was created. A curvilinear incision made in the lower uterine segment until bulging membranes were noted. This was extended manually. Membranes were ruptured. Clear fluid noted. Infant was delivered from the vertex position without difficulty. Nuchal cord times one was reduced. The cord was doubly clamped and cut. The was handed off to the awaiting nurses. The placenta was expressed. The uterus was closed with #0 Vicryl in a running locked fashion. A second imbricating layer of #0 Vicryl was placed. The peritoneum was closed with #2-0 Vicryl in a running fashion. The fascia was closed with #0 Vicryl in a running fashion. Deep layer was irrigated and closed with #3-0 chromic. The skin was closed with #4-0 Monocryl subcuticular sutures. Sponge, instrument, and needle counts were correct. Mandy Tolbert MD assisted throughout the procedure. He helped create each layer of the incision. He helped delivery the fetus. He helped close all layers. He was indispensable to the procedure.
== END 2019-11-18 15:10 | disposition home or self-care (01) | DRG 540 ==
LOC: M LDI 05:17 → M OBS 10:22
PROVIDERS: ADMIT Specialist; ATTEND Specialist
PROC: 10D00Z1 Extraction of Products of Conception, Low, Open Approach (ICD-10-PCS; principal; 2019-11-16 07:30)
DX: O34.211 Maternal care for low transverse scar from previous cesarean delivery (principal); Z3A.39 39 weeks gestation of pregnancy; Z37.0 Single live birth; Z30.2 Encounter for sterilization

== ENCOUNTER → 2021-01-30 | Outpatient (CLI) | payer OTHER ==
[~2021-01-30] MED LIST changes: +OXYC1TAB23 PO
[2021-01-30 13:23] LABS: BASO % 0.4 % (0.0-1.0); EOS # 0.1 10^3/uL (0.0-0.5); EOS % 1.3 % (0.0-3.0); HEMATOCRIT 37.5 % (36.0-47.0); HEMOGLOBIN 12.2 g/dl (12.0-15.5); LYMPH # 1.4 10^3/uL (1.5-5.0); LYMPH % 21.4 % (24.0-44.0); MEAN CORPUSCULAR HGB CONC 32.5 g/dl (32.0-36.5); MEAN CORPUSCULAR VOLUME 95.4 fl (80.0-96.0); MONO # 0.5 10^3/uL (0.0-0.8); MONO % 7.2 % (2.0-8.0); NEUTROPHILS # 4.6 10^3/uL (1.5-8.5); NEUTROPHILS % 69.3 % (36.0-66.0); PLATELET COUNT, AUTOMATED 202 10^3/uL (150-450); RED BLOOD COUNT 3.93 10^6/uL (4.00-5.40); WHITE BLOOD COUNT 6.7 10^3/uL (4.0-10.0)
[2021-01-30 14:11] LABS: GC DNA AMPLIFICATION NEGATIVE (NEGATIVE)
[2021-01-30 16:50] LABS: HEPATITIS C VIRUS ABY INDEX < 0.0 INDEX (<0.8); HIV 1&2 SCREEN CENTAUR NEGATIVE (NEGATIVE)
== END ==
LOC: M PLALAB 09:44
PROVIDERS: ATTEND Specialist
DX: Z34.81 Encounter for supervision of other normal pregnancy, first trimester (principal)

== ENCOUNTER → 2021-02-14 | Outpatient (CLI) | payer OTHER ==
--- NOTE | 2021-02-14 14:19 | REP ---
INDICATION: ANATOMY. COMPARISON: None. TECHNIQUE: Transabdominal obstetric sonography. FINDINGS: Scanning through the gravid uterus demonstrates a viable single intrauterine gestation in transverse lie. motion is observed and heart rate is recorded at 146 beats per minute. A anterior and right lateral placenta is seen, grade 1, without evidence of placenta previa. Closed cervical length is measured at 5.6 cm transabdominally. No extrauterine abnormality is observed. Amniotic fluid is subjectively normal. No anomaly is seen. The following anatomic structures are identified and felt to be sonographically unremarkable: cranium, choroid plexus, cavum, cerebellum and posterior fossa, face and profile, lungs, four-chamber heart, diaphragm, left-sided stomach, abdominal wall cord insertion, three-vessel umbilical cord, kidneys and bladder, spine, and upper and lower extremities. cardiac outflow tract views are less than optimally achieved due to position. Biometry chart: BPD 4.9 cm, 20 weeks 6 days Head circumference 17.8 cm, 20 weeks 2 days Abdominal circumference 16.5 cm, 21 weeks 4 days Femur length 3.3 cm, 20 weeks 2 days Humeral length 3.2 cm, 20 weeks 4 days HC AC ratio normal 1.08 Cephalic index normal 0.77 Estimated weight 386 g, 0 lb 13 oz, 48th percentile for 20 weeks 6 days IMPRESSION: Viable single intrauterine gestation at 20 weeks 5 days by today's composite sonographic criteria. HIPOLITO by today's sonography June 29, 2021. No complication identified. Expected gestational age estimate based on known HIPOLITO of 28 June 2021 is 20 weeks 6 days left and right cardiac outflow tract views less than optimally achieved due to position. <Electronically signed by Robert Estrada > 02/14/21 [id number]
== END ==
LOC: M WHC 12:58
PROVIDERS: ATTEND Specialist
DX: Z34.81 Encounter for supervision of other normal pregnancy, first trimester (principal)

== ENCOUNTER → 2021-03-27 | Outpatient (CLI) | payer OTHER ==
[2021-03-27 13:24] LABS: HEMATOCRIT 37.3 % (36.0-47.0); HEMOGLOBIN 12.2 g/dl (12.0-15.5); MEAN CORPUSCULAR HEMOGLOBIN 31.3 pg (27.0-33.0); MEAN CORPUSCULAR HGB CONC 32.7 g/dl (32.0-36.5); MEAN CORPUSCULAR VOLUME 95.6 fl (80.0-96.0); PLATELET COUNT, AUTOMATED 174 10^3/uL (150-450); WHITE BLOOD COUNT 8.3 10^3/uL (4.0-10.0)
[2021-03-27 15:51] LABS: GC DNA AMPLIFICATION NEGATIVE (NEGATIVE)
== END ==
LOC: M PLALAB 09:04
PROVIDERS: ATTEND Obstetrics & Gynecology
DX: O34.211 Maternal care for low transverse scar from previous cesarean delivery (principal)

== ENCOUNTER → 2021-03-28 | Outpatient (CLI) | payer OTHER ==
--- NOTE | 2021-03-30 06:47 | REP ---
INDICATION: F/U ANATOMY COMPARISON: 02/14/2021 TECHNIQUE: Transabdominal obstetrical ultrasound with color Doppler evaluation. FINDINGS: Examination demonstrates a single live intrauterine in variable presentation. motion is identified by technologist. Placenta is noted posterior and grade 1 without evidence for placenta previa or abruption. Amniotic fluid volume is above normal and suggests early polyhydramnios. Cervix measures 4.3 cm in length and appears closed.. Selected gestational age: 26 weeks 6 days with HIPOLITO 06/28/2021. Gestational age by current measurements 26 weeks 5 days with HIPOLITO is 06/29/2021. FHR equals 143 beats per minute. SIRIA: 23.2 cm (9.5-22.6) Estimated weight 975 grams (33rdpercentile). Anatomical assessment demonstrates normal structures including four-chamber heart/ventricular outflow tracts. IMPRESSION: 1. Polyhydramnios. 2. In conjunction with prior examination anatomical assessment is complete and normal. <Electronically signed by Alvin Calderón > 03/30/21 [id number]
== END ==
LOC: M WHC 07:36
PROVIDERS: ATTEND Obstetrics & Gynecology
DX: O34.219 Maternal care for unspecified type scar from previous cesarean delivery (principal)

== ENCOUNTER 2021-06-24 04:20 | Inpatient (IN) | payer OTHER ==
[2021-06-24] VITALS (8 sets, daily range): BP systolic 99–132; BP diastolic 53–87
[~2021-06-24] VITALS: Ht 165.1 cm; Wt 89.8 kg
[2021-06-24] MEDS ORDERED: HOME MED LIST COMPLETE! XX SCH (04:40)
[2021-06-24] MEDS ORDERED: BICITRA 30ML SOLN UDC As Ordered ONE (05:25)
[2021-06-24 05:28] LABS: HEMOGLOBIN 12.2 g/dl (12.0-15.5); MEAN CORPUSCULAR HEMOGLOBIN 31.4 pg (27.0-33.0); MEAN CORPUSCULAR VOLUME 95.1 fl (80.0-96.0); PLATELET COUNT, AUTOMATED 223 10^3/uL (150-450); RED BLOOD COUNT 3.89 10^6/uL (4.00-5.40); WHITE BLOOD COUNT 9.1 10^3/uL (4.0-10.0)
[2021-06-24] MEDS ORDERED: ceFAZolin 2 GM/D5W 50 ML IV BAG (J0690 PER 500MG) As Ordered ONE (05:29)
[2021-06-24 05:39] LABS: INR 0.86; PROTHROMBIN TIME 12.1 SECONDS (12.7-14.5)
[2021-06-24 05:40] LABS: PARTIAL THROMBOPLASTIN TIME 27.9 SECONDS (25.9-37.0)
[2021-06-24] MEDS ORDERED: NALBUPHINE HCL 10 MG/ML AMP (J2300) IV PRN (05:44)
[2021-06-24] MEDS ORDERED: ONDANSETRON 4MG/2ML VIAL IV PRN ×3 (05:44→08:15)
[2021-06-24] MEDS ORDERED: METOCLOPRAMIDE INJ 10MG/2ML VIAL (J2765 PER 1) IV PRN ×2 (05:44→08:15)
[2021-06-24] MEDS ORDERED: NALOXONE INJ 0.4MG/1ML VIAL (J2310 PER 1MG) IV PRN ×2 (05:44)
[2021-06-24] MEDS ORDERED: diphenhydrAMINE 50MG/ML VIAL (J1200) IV PRN (05:44)
[2021-06-24] MEDS ORDERED: KETOROLAC 60MG 2ML VIAL As Ordered ONE (05:53)
[2021-06-24] MEDS ORDERED: ONDANSETRON 4MG/2ML VIAL As Ordered ONE (05:53)
[2021-06-24] MEDS ORDERED: OXYTOCIN 30 UNITS IN 0.9% NaCl 500ML IV BAG (J2590) As Ordered ONE ×3 (05:53→07:21)
[2021-06-24] MEDS ORDERED: MORPHINE PRES-FREE INJ 10 MG/10 ML VIAL (J2274) As Ordered ONE (05:53)
[2021-06-24] MEDS ORDERED: ACETAMINOPHEN 1000MG 100ML IV BTL (OFIRMEV) (J0131 PER 10MG) As Ordered ONE (05:53)
[2021-06-24] MEDS ORDERED: dexameTHASONE 4 MG/ML 1ML VIAL (J1100 PER 1MG) As Ordered ONE (05:53)
[2021-06-24] MEDS ORDERED: ceFAZolin SOD 2 GM in IV 1 EA IV ONE (06:00)
[2021-06-24] MEDS ORDERED: BICITRA 30ML SOLN UDC PO SCH (06:00)
[2021-06-24] MEDS ORDERED: PHENYLephrine 500MCG 5ML (100MCG/ML) SYRINGE As Ordered ONE (06:02)
[2021-06-24] MEDS ORDERED: ePHEDrine SULFATE 25 MG/5 ML(5MG/ML) SYRINGE As Ordered ONE (06:02)
[2021-06-24 06:16] LABS: CORD GAS ABE V -0.5; CORD GAS HCO3 V 27.5 MEQ/L; CORD GAS O2 SAT V 31.4 %; CORD GAS PCO2 V 59.5 mmHg; CORD GAS PH V 7.283 UNITS; CORD GAS PO2 V 15.5 mmHg; CORD GAS SBC V 22.5 MEQ/L; CORD GAS TCO2 V 29.3 MEQ/L
[2021-06-24 06:17] LABS: CORD GAS ABE A -1.1; CORD GAS HCO3 A 28.3 MEQ/L; CORD GAS O2 SAT A 19.2 %; CORD GAS PH A 7.224 UNITS; CORD GAS PO2 A 12.9 mmHg; CORD GAS SBC A 21.7 MEQ/L; CORD GAS TCO2 A 30.4 MEQ/L
[2021-06-24] MEDS ORDERED: LR 1,000 ML IV SCH ×2 (06:45→08:15)
[2021-06-24] MEDS ORDERED: OXYTOCIN DRIP 30 UNITS in IV 1 EA IV SCH (06:45)
[2021-06-24] MEDS ORDERED: PERCOCET 5MG/325MG TAB PO PRN ×2 (06:45→08:15)
[2021-06-24] MEDS ORDERED: RHOGAM 300 MCG (1500 IU) INJ (J2790) IM SCH (06:45)
[2021-06-24] MEDS ORDERED: MEASLES,MUMPS,RUBELLA VACCINE INJ (MMR-II) (90707) SC SCH (06:45)
[2021-06-24] MEDS ORDERED: fentaNYL 100 MCG/2 ML INJECTION (J3010) IV PRN (08:15)
[2021-06-24] MEDS: PRENATAL VITAMINS CHEWABLE TABLET PO SCH (09:00)
[2021-06-24] MEDS: KETOROLAC 30 MG/ML 1ML VIAL IV SCH ×2 (12:34→18:05)
[2021-06-24] MEDS: DOCUSATE SODIUM 100MG CAPSULE PO PRN (20:04)
[2021-06-25] MEDS: KETOROLAC 30 MG/ML 1ML VIAL IV SCH (00:32)
[2021-06-25 02:00] VITALS: BP 91/56
[2021-06-25] MEDS: PERCOCET 5MG/325MG TAB PO PRN ×3 (05:42→18:28)
[2021-06-25 05:58] VITALS: BP 109/65
[2021-06-25] MEDS: IBUPROFEN 800 MG TAB PO SCH ×2 (08:17→15:51)
[2021-06-25] MEDS: PRENATAL VITAMINS CHEWABLE TABLET PO SCH (09:00)
[2021-06-25 09:28] LABS: HEMATOCRIT 33.7 % (36.0-47.0); HEMOGLOBIN 10.7 g/dl (12.0-15.5); MEAN CORPUSCULAR HEMOGLOBIN 30.9 pg (27.0-33.0); MEAN CORPUSCULAR HGB CONC 31.8 g/dl (32.0-36.5); MEAN CORPUSCULAR VOLUME 97.4 fl (80.0-96.0); PLATELET COUNT, AUTOMATED 199 10^3/uL (150-450); RED BLOOD COUNT 3.46 10^6/uL (4.00-5.40); WHITE BLOOD COUNT 10.5 10^3/uL (4.0-10.0)
[2021-06-25 09:58] VITALS: BP 98/52
[2021-06-25] MEDS: SIMETHICONE 80MG CHEW TAB PO PRN ×2 (11:59→18:28)
[2021-06-25 14:10] VITALS: BP 97/58
[2021-06-25 18:09] VITALS: BP 106/61
[2021-06-25 22:00] VITALS: BP 113/55
[2021-06-25] MEDS: DOCUSATE SODIUM 100MG CAPSULE PO PRN (22:12)
[2021-06-26] MEDS: IBUPROFEN 800 MG TAB PO SCH ×2 (00:28→08:01)
[2021-06-26] MEDS: SIMETHICONE 80MG CHEW TAB PO PRN (01:05)
[2021-06-26] MEDS: PERCOCET 5MG/325MG TAB PO PRN ×3 (01:05→14:11)
[2021-06-26 02:00] VITALS: BP 107/62
[2021-06-26 05:51] VITALS: BP 105/62
[2021-06-26] MEDS ORDERED: OXYC1TAB23 PO (07:53)
[2021-06-26] MEDS ORDERED: IBUP80TA PO (07:53)
[2021-06-26] MEDS: PRENATAL VITAMINS CHEWABLE TABLET PO SCH (09:00)
[2021-06-26] MEDS ORDERED: COLA100C5 PO (13:49)
== END 2021-06-26 15:50 | disposition home or self-care (01) | DRG 540 ==
LOC: M LDO 04:20 → M LDI 05:04 → M OBS 09:05
PROVIDERS: ADMIT Advanced Practice Midwife; ATTEND Specialist
PROC: 0UB70ZZ Excision of Bilateral Fallopian Tubes, Open Approach (ICD-10-PCS; 2021-06-24)
PROC: 10D00Z1 Extraction of Products of Conception, Low, Open Approach (ICD-10-PCS; principal; 2021-06-24 05:10)
DX: O45.93 Premature separation of placenta, unspecified, third trimester (principal); Z30.2 Encounter for sterilization; Z3A.38 38 weeks gestation of pregnancy; Z37.0 Single live birth; O34.211 Maternal care for low transverse scar from previous cesarean delivery

== ENCOUNTER → 2022-06-12 | Outpatient (CLI) | payer OTHER ==
[~2022-06-12] MED LIST changes: +IBUP80TA PO
[2022-06-12 07:30] LABS: HEMATOCRIT 38.7 % (36.0-47.0); HEMOGLOBIN 12.4 g/dl (12.0-15.5); MEAN CORPUSCULAR HEMOGLOBIN 30.3 pg (27.0-33.0); MEAN CORPUSCULAR VOLUME 94.6 fl (80.0-96.0); PLATELET COUNT, AUTOMATED 252 10^3/uL (150-450); RED BLOOD COUNT 4.09 10^6/uL (4.00-5.40); WHITE BLOOD COUNT 5.6 10^3/uL (4.0-10.0)
[2022-06-12 07:52] LABS: ERYTHROCYTE SEDIMENTATION RATE 12 mm/hr (0-20)
[2022-06-12 07:53] LABS: IRON (FE) 70 UG/DL (50-170); PERCENT SATURATION 23.4 % (13.2-45.0); TOTAL IRON BINDING CAPACITY 299 UG/DL (250-425)
[2022-06-12 07:54] LABS: ALBUMIN 3.9 G/DL (3.2-5.2); ALKALINE PHOSPHATASE 76 U/L (46-116); ALT/SGPT 26 U/L (7.0-40); AST/SGOT 19 U/L (<34); BILIRUBIN,TOTAL 0.7 MG/DL (0.3-1.2); BLOOD UREA NITROGEN 14 MG/DL (9-23); CALCIUM LEVEL 10.1 MG/DL (8.5-10.1); CARBON DIOXIDE LEVEL 28 MMOL/L (20-31); CHLORIDE LEVEL 104 MMOL/L (98-107); CHOLESTEROL LEVEL 176 MG/DL (<200); CHOLESTEROL RISK RATIO 2.19 (<5); CREATININE FOR GFR 0.67 MG/DL (0.55-1.30); GLOMERULAR FILTRATION RATE > 60.0 (>60); GLUCOSE, FASTING 79 MG/DL (60-100); HDL CHOLESTEROL 80.3 MG/DL (>40); LDL CHOLESTEROL 87.9 MG/DL (<100); NON-HDL-C 96 MG/DL; POTASSIUM SERUM 4.2 MMOL/L (3.5-5.1); SODIUM LEVEL 139 MMOL/L (136-145); TOTAL PROTEIN 6.7 G/DL (5.7-8.2); TRIGLYCERIDES LEVEL 39 MG/DL (<150)
[2022-06-12 07:55] LABS: THYROXINE (T4) 7.2 UG/DL (4.5-10.9); TOTAL 25(OH) VITAMIN D 27.6 NG/ML (20.0-100.0); TOTAL T3 80.4 NG/DL (60.0-181.0)
== END ==
LOC: M LAB 06:37
PROVIDERS: ATTEND Family Medicine
DX: D64.9 Anemia, unspecified (principal)

== ENCOUNTER → 2022-07-23 | Outpatient (CLI) | payer OTHER ==
[2022-07-23 15:56] LABS: FREE T4 1.16 NG/DL (0.89-1.76); THYROID STIMULATING HORMONE 2.028 uIU/ML (0.55-4.78)
[2022-07-24 11:36] LABS: DRVV SCREEN 30.6 SEC
[2022-07-24 11:44] LABS: PTT LUPUS TYPE ANTICOAG SCREEN 0.8 (0-1.2)
== END ==
LOC: M PLALAB 12:02
PROVIDERS: ATTEND Specialist
DX: E03.9 Hypothyroidism, unspecified (principal)

== ENCOUNTER → 2023-05-21 | Outpatient (CLI) | payer OTHER ==
[2023-05-21 09:11] LABS: HEMATOCRIT 36.1 % (36.0-47.0); HEMOGLOBIN 11.8 g/dl (12.0-15.5); MEAN CORPUSCULAR HEMOGLOBIN 31.4 pg (27.0-33.0); MEAN CORPUSCULAR HGB CONC 32.7 g/dl (32.0-36.5); PLATELET COUNT, AUTOMATED 214 10^3/uL (150-450); RED BLOOD COUNT 3.76 10^6/uL (4.00-5.40); WHITE BLOOD COUNT 2.8 10^3/uL (4.0-10.0)
[2023-05-21 09:21] LABS: ERYTHROCYTE SEDIMENTATION RATE 5 mm/hr (0-20)
[2023-05-21 09:22] LABS: URIC ACID 4.1 MG/DL (3.1-7.8)
[2023-05-21 09:30] LABS: ALBUMIN 3.8 G/DL (3.2-5.2); ALKALINE PHOSPHATASE 70 U/L (46-116); ALT/SGPT 28 U/L (7.0-40); AST/SGOT 17 U/L (<34); BILIRUBIN,TOTAL 0.8 MG/DL (0.3-1.2); BLOOD UREA NITROGEN 14 MG/DL (9-23); CARBON DIOXIDE LEVEL 30 MMOL/L (20-31); CHLORIDE LEVEL 105 MMOL/L (98-107); CHOLESTEROL LEVEL 174 MG/DL (<200); CHOLESTEROL RISK RATIO 2.35 (<5); CREATININE FOR GFR 0.66 MG/DL (0.55-1.30); GLOMERULAR FILTRATION RATE > 60.0 (>60); GLUCOSE, FASTING 82 MG/DL (60-100); HDL CHOLESTEROL 73.8 MG/DL (>40); LDL CHOLESTEROL 93.2 MG/DL (<100); NON-HDL-C 100.2 MG/DL; POTASSIUM SERUM 4.1 MMOL/L (3.5-5.1); SODIUM LEVEL 140 MMOL/L (136-145); TOTAL 25(OH) VITAMIN D 32.5 NG/ML (20.0-100.0); TOTAL PROTEIN 6.4 G/DL (5.7-8.2); TRIGLYCERIDES LEVEL 35 MG/DL (<150)
[2023-05-21 09:48] LABS: HEMOGLOBIN A1c 5.1 % (4.0-6.0)
[2023-05-22 14:10] LABS: ANTINUCLEAR ANTIBODIES DIRECT Negative (Negative); LEAD BLOOD ADULT <1.0 ug/dL (0.0-3.4)
== END ==
LOC: M RAD 07:18
PROVIDERS: ATTEND Family Medicine
DX: D64.9 Anemia, unspecified (principal); R53.83 Other fatigue; E03.9 Hypothyroidism, unspecified; M19.90 Unspecified osteoarthritis, unspecified site

== ENCOUNTER → 2023-05-26 | Outpatient (CLI) | payer OTHER | LOC: M WHC 08:14 | PROVIDERS: ATTEND Family Medicine | DX: N63.0 Unspecified lump in unspecified breast (principal) ==

== ENCOUNTER → 2023-07-21 | Outpatient (REF) | payer OTHER | LOC: M SFHCWAGY 12:59 | PROVIDERS: ATTEND Specialist | DX: Z01.419 Encounter for gynecological examination (general) (routine) without abnormal findings (principal) ==

== ENCOUNTER 2023-08-04 02:46 | Emergency (ER) | payer OTHER ==
[~2023-08-04] VITALS: Ht 165.1 cm; Wt 56.8 kg
[2023-08-04 02:46] VITALS: BP 96/53; TEMP 98.6; O2SAT 99
[2023-08-04 03:46] LABS: EOS # 0.1 10^3/uL (0.0-0.5); EOS % 2.8 % (0.0-3.0); HEMOGLOBIN 12.3 g/dl (12.0-15.5); LYMPH # 1.6 10^3/uL (1.5-5.0); LYMPH % 39.9 % (24.0-44.0); MEAN CORPUSCULAR HEMOGLOBIN 31.1 pg (27.0-33.0); MEAN CORPUSCULAR HGB CONC 32.4 g/dl (32.0-36.5); MEAN CORPUSCULAR VOLUME 96.2 fl (80.0-96.0); MONO # 0.3 10^3/uL (0.0-0.8); MONO % 6.9 % (2.0-8.0); NEUTROPHILS # 1.9 10^3/uL (1.5-8.5); NEUTROPHILS % 49.4 % (36.0-66.0); PLATELET COUNT, AUTOMATED 210 10^3/uL (150-450); RED BLOOD COUNT 3.95 10^6/uL (4.00-5.40); WHITE BLOOD COUNT 3.9 10^3/uL (4.0-10.0)
[2023-08-04 03:52] LABS: APPEARANCE, URINE CLOUDY (CLEAR); BACTERIA, URINE AUTO 1+ (NEGATIVE); BILIRUBIN, URINE AUTO NEGATIVE (NEGATIVE); BLOOD, URINE BLOOD 1+ (NEGATIVE); CALCIUM OXALATE CRYSTALS SMALL; COLOR, URINE YELLOW (YELLOW); GLUCOSE, URINE (UA) AUTO NEGATIVE (NEGATIVE); KETONE, URINE AUTO NEGATIVE (NEGATIVE); LEUKOCYTE ESTERASE, URINE AUTO 3+ (NEGATIVE); MUCUS, URINE SMALL (NEGATIVE); NITRITE, URINE AUTO NEGATIVE (NEGATIVE); PROTEIN, URINE AUTO NEGATIVE (NEGATIVE); RBC, URINE AUTO 43 /HPF (0-3); SPECIFIC GRAVITY URINE AUTO 1.012 (1.002-1.035); SQUAMOUS EPITHELIAL CELL UR AU 5 /HPF (0-6); TRANSITIONAL EPITHELIAL AUTO 1 /HPF; UROBILINOGEN, URINE AUTO 0.2 mg/dL (0.0-2.0); WBC, URINE AUTO TNTC /HPF (0-3)
[2023-08-04 04:00] LABS: RSV AMPLIFICATION NEGATIVE (NEGATIVE)
[2023-08-04 04:16] LABS: LIPASE 29 U/L (12-53)
[2023-08-04 04:18] LABS: ALBUMIN 3.8 G/DL (3.2-5.2); ALKALINE PHOSPHATASE 67 U/L (46-116); ALT/SGPT 26 U/L (7.0-40); AST/SGOT 15 U/L (<34); BILIRUBIN,DIRECT 0.1 MG/DL (<0.4); BILIRUBIN,TOTAL 0.4 MG/DL (0.3-1.2); BLOOD UREA NITROGEN 14 MG/DL (9-23); CALCIUM LEVEL 9.8 MG/DL (8.5-10.1); CARBON DIOXIDE LEVEL 30 MMOL/L (20-31); CHLORIDE LEVEL 108 MMOL/L (98-107); CREATININE FOR GFR 0.65 MG/DL (0.55-1.30); GLOMERULAR FILTRATION RATE > 60.0 (>60); GLUCOSE, FASTING 89 MG/DL (60-100); POTASSIUM SERUM 4.3 MMOL/L (3.5-5.1); SODIUM LEVEL 137 MMOL/L (136-145); TOTAL PROTEIN 6.7 G/DL (5.7-8.2)
== END 2023-08-04 05:02 | disposition left against medical advice (07) ==
LOC: M ED 02:46
DX: Z53.21 Procedure and treatment not carried out due to patient leaving prior to being seen by health care provider (principal)

== ENCOUNTER → 2023-08-25 | Outpatient (REF) | payer OTHER | LOC: M LAB REF 17:14 | PROVIDERS: ATTEND Specialist | DX: N39.0 Urinary tract infection, site not specified (principal) ==

== ENCOUNTER → 2024-02-03 | Outpatient (CLI) | payer OTHER ==
[2024-02-03 08:24] LABS: HEMATOCRIT 37.2 % (36.0-47.0); MEAN CORPUSCULAR HEMOGLOBIN 30.7 pg (27.0-33.0); MEAN CORPUSCULAR HGB CONC 32.3 g/dl (32.0-36.5); MEAN CORPUSCULAR VOLUME 95.1 fl (80.0-96.0); PLATELET COUNT, AUTOMATED 183 10^3/uL (150-450); RED BLOOD COUNT 3.91 10^6/uL (4.00-5.40); WHITE BLOOD COUNT 3.2 10^3/uL (4.0-10.0)
[2024-02-03 08:41] LABS: ERYTHROCYTE SEDIMENTATION RATE 11 mm/hr (0-20)
[2024-02-03 08:42] LABS: HEMOGLOBIN A1c 5.2 % (4.0-6.0)
[2024-02-03 08:48] LABS: TOTAL IRON BINDING CAPACITY 294 UG/DL (250-425)
[2024-02-03 08:49] LABS: ALBUMIN 3.5 G/DL (3.2-5.2); ALKALINE PHOSPHATASE 55 U/L (46-116); ALT/SGPT 27 U/L (7.0-40); AST/SGOT 23 U/L (<34); BILIRUBIN,TOTAL 0.7 MG/DL (0.3-1.2); BLOOD UREA NITROGEN 6 MG/DL (9-23); CALCIUM LEVEL 9.8 MG/DL (8.5-10.1); CARBON DIOXIDE LEVEL 30 MMOL/L (20-31); CHLORIDE LEVEL 109 MMOL/L (98-107); CHOLESTEROL LEVEL 162 MG/DL (<200); CHOLESTEROL RISK RATIO 2.49 (<5); CREATININE FOR GFR 0.68 MG/DL (0.55-1.30); GLOMERULAR FILTRATION RATE > 60.0 (>58); GLUCOSE, FASTING 86 MG/DL (60-100); HDL CHOLESTEROL 64.9 MG/DL (>40); IRON (FE) 55 UG/DL (50-170); LDL CHOLESTEROL 90.1 MG/DL (<100); NON-HDL-C 97.1 MG/DL; PERCENT SATURATION 18.7 % (13.2-45.0); POTASSIUM SERUM 4.3 MMOL/L (3.5-5.1); RHEUMATOID FACTOR QUANT 7.5 IU/ML (<14); SODIUM LEVEL 141 MMOL/L (136-145); TOTAL PROTEIN 6.1 G/DL (5.7-8.2); TRIGLYCERIDES LEVEL 35 MG/DL (<150)
[2024-02-03 08:50] LABS: THYROID STIMULATING HORMONE 1.322 uIU/ML (0.55-4.78)
[2024-02-03 08:51] LABS: THYROXINE (T4) 5.8 UG/DL (4.5-10.9); TOTAL 25(OH) VITAMIN D 42.4 NG/ML (20.0-100.0); TOTAL T3 111.8 NG/DL (60.0-181.0)
== END ==
LOC: M LAB 07:28
PROVIDERS: ATTEND Family Medicine
DX: D64.9 Anemia, unspecified (principal); R53.83 Other fatigue; E03.9 Hypothyroidism, unspecified

== ENCOUNTER → 2024-06-06 | Outpatient (CLI) | payer OTHER | LOC: M RAD 08:23 | PROVIDERS: ATTEND Family Medicine | DX: R19.01 Right upper quadrant abdominal swelling, mass and lump (principal) ==

== ENCOUNTER → 2024-06-09 | Outpatient (CLI) | payer OTHER ==
[2024-06-09 07:46] LABS: HEMATOCRIT 38.3 % (36.0-47.0); HEMOGLOBIN 12.3 g/dl (12.0-15.5); MEAN CORPUSCULAR HEMOGLOBIN 30.7 pg (27.0-33.0); MEAN CORPUSCULAR HGB CONC 32.1 g/dl (32.0-36.5); MEAN CORPUSCULAR VOLUME 95.5 fl (80.0-96.0); PLATELET COUNT, AUTOMATED 196 10^3/uL (150-450); RED BLOOD COUNT 4.01 10^6/uL (4.00-5.40); WHITE BLOOD COUNT 3.6 10^3/uL (4.0-10.0)
[2024-06-09 08:01] LABS: AMORPHOUS SEDIMENT SMALL (NEGATIVE); APPEARANCE, URINE HAZY (CLEAR); BACTERIA, URINE AUTO 1+ (NEGATIVE); BILIRUBIN, URINE AUTO NEGATIVE (NEGATIVE); BLOOD, URINE BLOOD NEGATIVE (NEGATIVE); COLOR, URINE YELLOW (YELLOW); GLUCOSE, URINE (UA) AUTO NEGATIVE (NEGATIVE); KETONE, URINE AUTO NEGATIVE (NEGATIVE); LEUKOCYTE ESTERASE, URINE AUTO TRACE (NEGATIVE); MUCUS, URINE SMALL (NEGATIVE); NITRITE, URINE AUTO NEGATIVE (NEGATIVE); PROTEIN, URINE AUTO NEGATIVE (NEGATIVE); RBC, URINE AUTO 1 /HPF (0-3); SPECIFIC GRAVITY URINE AUTO 1.012 (1.002-1.035); SQUAMOUS EPITHELIAL CELL UR AU 7 /HPF (0-6); UROBILINOGEN, URINE AUTO 0.2 mg/dL (0.0-2.0); WBC, URINE AUTO 11 /HPF (0-3)
[2024-06-09 08:08] LABS: HEMOGLOBIN A1c 5.1 % (4.0-6.0); TOTAL IRON BINDING CAPACITY 343 UG/DL (250-425)
[2024-06-09 08:09] LABS: ALBUMIN 3.7 G/DL (3.2-5.2); ALKALINE PHOSPHATASE 62 U/L (35-104); ALT/SGPT 23 U/L (7.0-40); AST/SGOT 15 U/L (<34); BILIRUBIN,TOTAL 0.5 MG/DL (0.3-1.2); BLOOD UREA NITROGEN 10 MG/DL (9-23); CARBON DIOXIDE LEVEL 31 MMOL/L (20-31); CHLORIDE LEVEL 107 MMOL/L (98-107); CHOLESTEROL LEVEL 193 MG/DL (<200); CHOLESTEROL RISK RATIO 2.61 (<5); CREATININE FOR GFR 0.67 MG/DL (0.55-1.30); GLOMERULAR FILTRATION RATE > 60.0 (>58); GLUCOSE, FASTING 87 MG/DL (60-100); HDL CHOLESTEROL 73.9 MG/DL (>40); IRON (FE) 80 UG/DL (50-170); LDL CHOLESTEROL 108.5 MG/DL (<100); NON-HDL-C 119.1 MG/DL; PERCENT SATURATION 23.3 % (13.2-45.0); POTASSIUM SERUM 4.1 MMOL/L (3.5-5.1); SODIUM LEVEL 142 MMOL/L (136-145); TOTAL PROTEIN 6.7 G/DL (5.7-8.2); TRIGLYCERIDES LEVEL 53 MG/DL (<150)
[2024-06-09 08:10] LABS: THYROID STIMULATING HORMONE 33.251 uIU/ML (0.55-4.78)
== END ==
LOC: M RAD 06:52
PROVIDERS: ATTEND Family Medicine
DX: I10 Essential (primary) hypertension (principal); R53.83 Other fatigue; D64.9 Anemia, unspecified; N39.0 Urinary tract infection, site not specified

== ENCOUNTER → 2024-07-05 | Outpatient (REF) | payer OTHER ==
[2024-07-06 14:34] LABS: FREE T4 0.76 NG/DL (0.89-1.76); THYROID STIMULATING HORMONE 10.926 uIU/ML (0.55-4.78)
== END ==
LOC: M LAB REF 13:34
PROVIDERS: ATTEND Internal Medicine Nephrology
DX: E03.9 Hypothyroidism, unspecified (principal)

== ENCOUNTER → 2024-09-01 | Outpatient (CLI) | payer OTHER ==
[2024-09-01 09:06] LABS: HEMATOCRIT 37.2 % (36.0-47.0); HEMOGLOBIN 12.2 g/dl (12.0-15.5); MEAN CORPUSCULAR HEMOGLOBIN 30.4 pg (27.0-33.0); MEAN CORPUSCULAR HGB CONC 32.8 g/dl (32.0-36.5); MEAN CORPUSCULAR VOLUME 92.8 fl (80.0-96.0); PLATELET COUNT, AUTOMATED 180 10^3/uL (150-450); RED BLOOD COUNT 4.01 10^6/uL (4.00-5.40); WHITE BLOOD COUNT 2.8 10^3/uL (4.0-10.0)
[2024-09-01 09:28] LABS: HEMOGLOBIN A1c 4.9 % (4.0-6.0); IRON (FE) 39 UG/DL (50-170); PERCENT SATURATION 10.5 % (13.2-45.0); TOTAL IRON BINDING CAPACITY 373 UG/DL (250-425)
[2024-09-01 09:29] LABS: ALBUMIN 3.9 G/DL (3.2-5.2); ALKALINE PHOSPHATASE 60 U/L (35-104); ALT/SGPT 29 U/L (7.0-40); AST/SGOT 22 U/L (<34); BILIRUBIN,TOTAL 0.6 MG/DL (0.3-1.2); BLOOD UREA NITROGEN 8 MG/DL (9-23); CALCIUM LEVEL 9.6 MG/DL (8.5-10.1); CARBON DIOXIDE LEVEL 28 MMOL/L (20-31); CHLORIDE LEVEL 104 MMOL/L (98-107); CHOLESTEROL LEVEL 176 MG/DL (<200); CHOLESTEROL RISK RATIO 2.26 (<5); CREATININE FOR GFR 0.65 MG/DL (0.55-1.30); GLOMERULAR FILTRATION RATE > 60.0 (>58); GLUCOSE, FASTING 84 MG/DL (60-100); HDL CHOLESTEROL 77.8 MG/DL (>40); LDL CHOLESTEROL 91.4 MG/DL (<100); NON-HDL-C 98.2 MG/DL; POTASSIUM SERUM 4.1 MMOL/L (3.5-5.1); SODIUM LEVEL 138 MMOL/L (136-145); TOTAL T3 81.6 NG/DL (60.0-181.0); TRIGLYCERIDES LEVEL 34 MG/DL (<150)
[2024-09-01 09:30] LABS: THYROID STIMULATING HORMONE 7.167 uIU/ML (0.55-4.78); THYROXINE (T4) 4.9 UG/DL (4.5-10.9)
[2024-09-01 09:31] LABS: TOTAL 25(OH) VITAMIN D 48.1 NG/ML (20.0-100.0)
== END ==
LOC: M LAB 08:25
PROVIDERS: ATTEND Family Medicine
DX: D64.9 Anemia, unspecified (principal)

== ENCOUNTER → 2025-03-22 | Outpatient (REF) | payer OTHER ==
[~2025-03-22] MED LIST changes: -IBUP-1022 PO; +IBUP600T42 PO
[2025-03-22 19:32] LABS: FREE T4 0.98 NG/DL (0.89-1.76)
== END ==
LOC: M LAB REF 16:55
PROVIDERS: ATTEND Internal Medicine Nephrology
DX: E03.9 Hypothyroidism, unspecified (principal)

== ENCOUNTER → 2025-04-13 | Outpatient (REF) | payer OTHER ==
[2025-04-17 13:37] LABS: HPV APTIMA Not Detected (Not Detected)
== END ==
LOC: M PLALAB 08:21
PROVIDERS: ATTEND Specialist
DX: Z01.419 Encounter for gynecological examination (general) (routine) without abnormal findings (principal); Z12.31 Encounter for screening mammogram for malignant neoplasm of breast; Z11.51 Encounter for screening for human papillomavirus (HPV)

== ENCOUNTER → 2025-04-13 | Outpatient (CLI) | payer OTHER | LOC: M WHC 09:27 | PROVIDERS: ATTEND Specialist | DX: Z12.31 Encounter for screening mammogram for malignant neoplasm of breast (principal) ==

== ENCOUNTER → 2025-05-02 | Outpatient (CLI) | payer OTHER | LOC: M WHC 11:02 | PROVIDERS: ATTEND Plastic Surgery | DX: R92.8 Other abnormal and inconclusive findings on diagnostic imaging of breast (principal) ==